=== PATIENT | female | born 1985 | race American Indian/Alaskan Native ===

== ENCOUNTER 2017-02-16 10:14 | Emergency (ER) | payer OTHER ==
[2014-10-25 17:16] VITALS: BMI 25.4
--- NOTE | 2017-02-16 11:02 | OBHP ---
Datetime: 02/16/2017 10:56 IP Adm Impression: , intrauterine ; No Active Labor; Intact Membranes IP Admit Plan: Observation/Evaluation; Discharge home Admit Comment, IP Provider: The patient is a 31-year-old 2 para 1 last menstrual period 09/19 estimated due date 07/05/2017 estimated gestational age 20 weeks. Patient states she was at wo rk she went to the bathroom while washing her hands she slipped and fell on her hip states she feels a little discomfort patient also states she injured her right finger has some difficulty with range o f motion. Patient denies any vaginal bleeding she reports good movement she denies any uterine contractions or ruptured membranes. Patient states her care has been unremarkable. Past medical history none Medications vitamins No known drug allergies Surgical history none Obstetrical history previous normal spontaneous vaginal delivery no complications Social history denies alcohol tobacco use Review of systems patient denies headache blurry vision chest pain shortness of breath palpitation s dysuria or constipation vomiting here cold intolerance easy bruisability musculoskeletal or neurolo gical complaints Vital signs stable afebrile Physical exam see notes Intrauterine at 20 weeks heart tones present, no vaginal bleeding, we will observe Anticipate discharge records remaining reviewed from Dr. Andrew's office Patient to follow up with ENT in 1 week Pelvic Type - PN: Not Done Extremities - PN: Normal Abdomen - PN: Normal Back - PN: Not Done Breast - PN: Normal Lungs - PN: Normal Heart - PN: Normal Thyroid - PN: Normal Neurologic - PN: Normal HEENT - PN: Normal General - PN: Normal FHR - Baseline A Provider: 150 Comments, ACOG Physical Exam: Patient reports she injured her finger patient states she has some dif ficulty with range of motion and fell on her hip no ecchymosis noted Gestation - Est Wks by US: 20.0 EGA AdmitDate IP: 20.1 IP Chief Complaint: Trauma/Fall Genitourinary Exam: Not Done DTRs - PN: Normal
== END 2017-02-16 11:37 | disposition home or self-care (01) ==
LOC: H.EROB2 10:14
DX: O47.02 False labor before 37 completed weeks of gestation, second trimester (principal); Z3A.20 20 weeks gestation of pregnancy; Z04.2 Encounter for examination and observation following work accident; W01.0XXA Fall on same level from slipping, tripping and stumbling without subsequent striking against object, initial encounter; Y99.0 Civilian activity done for income or pay

== ENCOUNTER 2017-06-30 08:57 | Inpatient (IN) | payer OTHER ==
[2017-06-30 09:28] VITALS: BMI 23.6
[2017-06-30] MEDS ORDERED: Oxytocin 30 units/LR 500ML 30 UNIT/500 ML BAG IV SCH (09:30)
[2017-06-30] MEDS ORDERED: Lactated Ringer's 1,000 ML IV ONE (09:30)
[2017-06-30 09:57] LABS: BASO % 0.5 % (0.0-2.0); EOS % 0.9 % (0.0-4.0); LYMPH # 1.2 K/uL (1.0-4.3); LYMPH % 25.4 % (20.0-40.0); MEAN CELL VOLUME 86.2 fl (81.0-99.0); MEAN CORPUSCULAR HEMOGLOBIN 28.6 pg (27.0-31.0); MEAN CORPUSCULAR HGB CONC 33.2 g/dL (33.0-37.0); MEAN PLATELET VOLUME 10.2 fl (7.2-11.7); MONO # 0.4 K/uL (0.0-0.8); MONO % 8.5 % (0.0-10.0); NEUT # 3.2 K/uL (1.8-7.0); NEUT % 64.7 % (50.0-75.0); NRBC % 0.1 % (0.0-0.0); WHITE BLOOD COUNT 4.9 K/uL (4.8-10.8)
[2017-06-30] MEDS ORDERED: Lidocaine 1% Inj (20ml) ONE (14:52)
--- NOTE | 2017-06-30 16:46 | OBADHP ---
Datetime: 06/30/2017 16:41 Admit Comment, IP Provider: admit to unit in labor and reviewed pt plan Pelvic Type - PN: Adequate Extremities - PN: Normal Abdomen - PN: Abnormal Back - PN: Normal Breast - PN: Normal Lungs - PN: Normal Heart - PN: Normal Thyroid - PN: Normal Neurologic - PN: Normal HEENT - PN: Normal General - PN: Normal Presentation-Admit: cephalic Comments, ACOG Physical Exam: abd soft NT fundus gravid NT, ext no calf tenderness Gestation - Est Wks by US: 39 wks IP Hx Assessment: The History has been Reviewed and is Current Vital Signs Provider: Reviewed IP Chief Complaint: Uterine contractions NICHD Decel Fetus A IP Provider: None Genitourinary Exam: Normal DTRs - PN: Normal EGA AdmitDate IP: 39.2 IP Adm Impression: Term, intrauterine ; Active labor IP Admit Plan: Admit to unit; Initiate labor protocol Datetime: 02/16/2017 10:56 FHR - Baseline A Provider: 150
--- NOTE | 2017-06-30 16:55 | OBDS ---
DELIVERY PERSONNEL Delivery Doctor: Steve Andrew MD Patient Navigator: Na Segura RN MATERNAL INFORMATION Delivery Anesthesia: None Estimated Blood Loss (ml): 200cc Placenta Cultured: No Maternal Complications: None Provider Comments: Delivered a living baby boy appears term cried spontaneously 9/9, AF clear Placenta delivered complete and intact showing multiple calcifications Small lacerations repaired as above, no complications Uterus contracted well Rectal done no defects Pt tolerated procedure well no complications LABOR SUMMARY EDC: 07/05/2017 00:00 No. Babies in Womb: 1 Attempted: No LABOR INFORMATION Reason for Induction: Not Applicable Group B Beta Strep: Negative Antibiotics # of Doses: n/a Steroids Given: None Reason Steroids Not Administered: Not Applicable MEMBRANES Membranes Rupture Method: Artificial Rupture of Membranes: 06/30/2017 15:22 Length of Rupture (hrs): 0.95 Amniotic Fluid Color: Clear Amniotic Fluid Amount: Moderate Amniotic Fluid Odor: Normal STAGES OF LABOR Stage 3 hrs: 0 Stage 3 min: 11 VAGINAL DELIVERY Episiotomy: None Laceration Extension: First Degree Laceration Type: Perineal; Periurethral Laceration Repair: Yes Laceration Repair Note: laceration periurethral was repaired with 3 simple 4-0 chromic sutures No u rethral involment Also a small perineal -vaginal laceration noted repaired with 2-0 chromic without a ny complications Sponge Count Correct: Yes Sharps Count Correct: Yes Count Comment: count correct CSECTION DELIVERY Primary Indication: Protracted Descent Secondary Indication: N/A CSection Incision: N/A Uterine Closure: N/A BABY A INFORMATION Infant Delivery Date/Time: 06/30/2017 16:19 Method of Delivery: Vaginal Born in Route : No : N/A Forceps: N/A Vacuum Extraction: N/A Shoulder Dystocia : No SHOULDER DYSTOCIA BABY A Delivery Date/Time: 06/30/2017 16:19 PRESENTATION/POSITION BABY A Presentation: Cephalic Cephalic Presentation: Vertex Vertex Position: Left Occipital Anterior Breech Presentation: N/A PLACENTA INFORMATION BABY A Placenta Delivery Time : 06/30/2017 16:30 Placenta Method of Delivery: Spontaneous Placenta Status: Delivered SCORES BABY A Heart Rate 1 min: >100 bpm Resp Effort 1 min: Good Cry Reflex Irritability 1 min: Cough or Sneeze or Pulls Away Muscle Tone 1 min: Active Motion Color 1 min: Body [place], Extremities Blue SCORE 1 MIN: 9 Heart Rate 5 min: >100 bpm Resp Effort 5 min: Good Cry Reflex Irritability 5 min: Cough or Sneeze or Pulls Away Muscle Tone 5 min: Active Motion Color 5 min: Body [place], Extremities Blue SCORE 5 MIN: 9 INFANT INFORMATION BABY A Gestational Age at Delivery: 39.2 Gestational Status: Term Infant Outcome : Liveborn Condition : Stable Infant Sex: Male ASSESSMENT BABY A Infant Complications: None Physical Findings at Delivery: Within Normal Limits Respirations: Appears Normal Transferred To: Remains with Mother
[2017-06-30] MEDS ORDERED: Oxycodone/Acetaminophen 5/325 mg Tab PO PRN ×2 (16:56→18:47)
[2017-06-30] MEDS ORDERED: Labetalol 5 mg/ml Inj 20ML IVP ONE (18:30)
[2017-07-01 06:11] LABS: HEMATOCRIT 35.4 % (34.0-47.0); MEAN CELL VOLUME 86.7 fl (81.0-99.0); MEAN CORPUSCULAR HEMOGLOBIN 28.3 pg (27.0-31.0); MEAN CORPUSCULAR HGB CONC 32.7 g/dL (33.0-37.0); RED CELL DISTRIBUTION WIDTH 13.4 % (11.5-14.5); WHITE BLOOD COUNT 9.5 K/uL (4.8-10.8)
--- NOTE | 2017-07-01 11:18 | OBPPN ---
Datetime: 07/01/2017 11:13 PP Pain Prov: Within normal limits PP Pain Prov comment: No SOB chest pains or leg pains PP Nausea Prov: Denies PP Flatus Prov: Yes PP Breasts Prov: Normal PP Lungs Prov: Normal PP Abdomen/Uterus Prov: Abnormal PP Lochia Prov: Normal PP Vulva/Perineum Prov: Abnormal PP CVA Tenderness Prov: Normal PP Extremities Prov: Normal PP C/S Incision Prov: Not Applicable PP Progress Prov: Normal PP Comments Phys Exam Prov: breast not engorged Abd not distended fundus firm below the umb Perineum repaired Ext no calf tenderness PP Impression Prov: Normal progression PP Plan Prov: Continue present management PP Progress Note Prov: continue pp care OOB and ambulation and mannual platellet count. IP PP Procedures: None Vital Signs Provider PP: Reviewed
--- NOTE | 2017-07-02 07:06 | OBPPN ---
Datetime: 07/02/2017 07:02 PP Pain Prov: Within normal limits PP Nausea Prov: Denies PP Flatus Prov: Yes PP BM Prov: Yes PP Breasts Prov: Normal PP Heart Prov: Normal PP Lungs Prov: Normal PP Abdomen/Uterus Prov: Normal PP Lochia Prov: Normal PP Vulva/Perineum Prov: Normal PP CVA Tenderness Prov: Normal PP Extremities Prov: Normal PP Progress Prov: Normal PP Impression Prov: Normal progression PP Plan Prov: Continue present management PP Progress Note Prov: stable ppd2,continue present care IP PP Procedures: None Vital Signs Provider PP: Reviewed; Within Normal Limits
--- NOTE | 2017-07-02 07:08 | OBDCSUM ---
Datetime: 07/02/2017 07:04 Discharged to, Provider: Home Follow up at, Provider: Disch Instr Activity: Bedrest; May be up to bathroom; May be up for meals; May Shower Disch Instr Diet: Regular Discharge Instructions, Provider: Routine instructions given Discharge Diagnosis, Provider: Term Delivered Discharge Time: 07/02/2017 07:04 Follow up in weeks, Provider: 5-6weeks Disch Referrals: None Disch Activity Restrictions: No exercising; No lifting; No driving; Minimize walking; Minimize stair -climbing; No sexual activity; Nothing in vagina - [place], tampons, douche Discharge Comment, Provider: silvia home today rto 5-6 weeks,call office if any problems Contraception after Delivery: Undecided
[2017-07-02 17:28] VITALS: BP 114/76; PULSE 63; RESP 20; TEMP 97.9; O2SAT 98
== END 2017-07-02 12:50 | disposition home or self-care (01) | DRG 775 ==
LOC: H.EROB2 08:57 → H.L&D 09:01 → H.EROB2 09:28 → H.L&D 09:29 → H.OB/GYN 18:18
PROVIDERS: ADMIT Specialist; ATTEND Specialist
PROC: 10E0XZZ Delivery of Products of Conception, External Approach (ICD-10-PCS; principal; 2017-06-30)
PROC: 0HQ9XZZ Repair Perineum Skin, External Approach (ICD-10-PCS; 2017-06-30)
PROC: 4A1HXCZ Monitoring of Products of Conception, Cardiac Rate, External Approach (ICD-10-PCS; 2017-06-30)
DX: O70.0 First degree perineal laceration during delivery (principal); Z37.0 Single live birth; Z3A.39 39 weeks gestation of pregnancy